=== PATIENT | male | born 1980 | race Two or more races ===

== ENCOUNTER 2023-01-26 10:19 | Observation (INO) | payer OTHER ==
[2023-01-26 10:22] VITALS: BMI 31.3
[2023-01-26] MEDS ORDERED: ACETAMINOPHEN 500 MG TABLET (FP) PO ONE (10:49)
[2023-01-26] MEDS ORDERED: KETOROLAC TROMETHAMINE 30 MG/1 ML VIAL IM ONE (10:49)
[2023-01-26] MEDS ORDERED: ACETAMINOPHEN 500 MG TABLET (FP) ONE (11:33)
[2023-01-26] MEDS ORDERED: KETOROLAC TROMETHAMINE 30 MG/1 ML VIAL ONE ×2 (11:33→21:20)
[2023-01-26 13:13] LABS: BASO % 0.4 % (0-2.0); EOS % 0.9 % (0-4.5); HEMOGLOBIN 9.6 GM/dL (11.7-16.9); LYMPH % 18.6 % (8-40); MCH 28.6 pg (25.7-33.7); MEAN CELL VOLUME 92.4 fl (80-96); MEAN PLT VOLUME 8.2 fl (7.5-11.1); MONO % 8.5 % (3.8-10.2); NEUT % 71.6 % (42.8-82.8); PLATELET COUNT 193 10^3/uL (134-434); RBC 3.35 M/mm3 (4.00-5.60); RDW 20.4 % (11.9-15.9); WHITE BLOOD COUNT 6.3 K/mm3 (4.0-10.0)
[2023-01-26 13:39] LABS: POTASSIUM 5.1 mmol/L (3.5-5.1)
[2023-01-26 13:41] LABS: BLOOD UREA NITROGEN 3.4 mg/dL (7-18)
[2023-01-26 13:42] LABS: ALBUMIN 3.3 g/dl (3.4-5.0)
[2023-01-26 13:44] LABS: CREATININE 0.6 mg/dL (0.55-1.3)
[2023-01-26 13:46] LABS: BILIRUBIN,TOTAL 0.4 mg/dL (0.2-1); TOT PROT 7.9 g/dl (6.4-8.2)
[2023-01-26] MEDS ORDERED: ACETAMINOPHEN 500 MG TABLET (FP) PO PRN (20:53)
[2023-01-26] MEDS: KETOROLAC TROMETHAMINE 30 MG/1 ML VIAL IVPUSH PRN (21:25)
[2023-01-27] MEDS ORDERED: ONDANSETRON 4 MG/2 ML VIAL IVPUSH ONE (01:00)
[2023-01-27] MEDS ORDERED: KETOROLAC TROMETHAMINE 30 MG/1 ML VIAL ONE (06:22)
[2023-01-27] MEDS: KETOROLAC TROMETHAMINE 30 MG/1 ML VIAL IVPUSH PRN ×3 (06:23→23:38)
[2023-01-27 12:35] LABS: BASO % 0.4 % (0-2.0); EOS % 0.4 % (0-4.5); HEMATOCRIT 29.1 % (35.4-49); HEMOGLOBIN 8.8 GM/dL (11.7-16.9); LYMPH % 14.9 % (8-40); MCH 27.8 pg (25.7-33.7); MCHC 30.3 g/dl (32.0-35.9); MEAN CELL VOLUME 91.7 fl (80-96); MEAN PLT VOLUME 7.9 fl (7.5-11.1); MONO % 13.9 % (3.8-10.2); NEUT % 70.4 % (42.8-82.8); PLATELET COUNT 178 10^3/uL (134-434); RBC 3.17 M/mm3 (4.00-5.60); RDW 20.6 % (11.9-15.9); WHITE BLOOD COUNT 4.4 K/mm3 (4.0-10.0)
[2023-01-27 13:01] LABS: POTASSIUM 3.6 mmol/L (3.5-5.1)
[2023-01-27 13:03] LABS: CALCIUM 8.1 mg/dL (8.5-10.1)
[2023-01-27 13:04] LABS: BLOOD UREA NITROGEN 8.7 mg/dL (7-18)
[2023-01-27 13:07] LABS: CREATININE 0.7 mg/dL (0.55-1.3)
[2023-01-27 13:08] LABS: TOT PROT 6.9 g/dl (6.4-8.2)
[2023-01-28 04:48] VITALS: RESP 18
[2023-01-28] MEDS: KETOROLAC TROMETHAMINE 30 MG/1 ML VIAL IVPUSH PRN (07:07)
[2023-01-28 09:21] VITALS: BP 131/77; PULSE 84; TEMP 100.1
== END 2023-01-28 09:25 | disposition home or self-care (01) ==
LOC: JER 10:19 → JERBED 15:31 → UNDOADMOB 15:31 → INTOOBSV 15:31 → JERBED 01-27 09:06 → J6S 01-27 10:48
PROVIDERS: ADMIT Family Medicine; ATTEND Family Medicine
PROC: 3E0233Z Introduction of Anti-inflammatory into Muscle, Percutaneous Approach (ICD-10-PCS; principal; 2023-01-27)
PROC: 3E0337Z Introduction of Electrolytic and Water Balance Substance into Peripheral Vein, Percutaneous Approach (ICD-10-PCS; 2023-01-27)
DX: R19.00 Intra-abdominal and pelvic swelling, mass and lump, unspecified site (principal); F17.200 Nicotine dependence, unspecified, uncomplicated; M25.551 Pain in right hip; Z91.013 Allergy to seafood
CPT/HCPCS: 36415; 72192-TC; 73502-TC-RT-FY; 80053; 82728; 83540; 83550; 85025; 85045; 86850; 86900; 86901; 96361; 96372; 96374; 99285-25; G0378

== ENCOUNTER 2024-04-07 22:47 | Observation (INO) | payer OTHER ==
[2024-04-08] MEDS: ACETAMINOPHEN 325 MG TABLET (FP) PO ONE (03:40)
[2024-04-08] MEDS: KETOROLAC TROMETHAMINE 30 MG/1 ML VIAL IM ONE (04:42)
[2024-04-08] MEDS ORDERED: KETOROLAC TROMETHAMINE 30 MG/1 ML VIAL ONE (04:43)
[2024-04-08] MEDS ORDERED: morphine SULFATE 4 MG/ML VIAL ONE (07:20)
[2024-04-08] MEDS: morphine CARPU-JECT 2 MG/1 ML DISP.SYRIN IM ONE (07:28)
[2024-04-08] MEDS: HYDROmorphone HCl 2 MG/ML VIAL IVPUSH ONE (09:15)
[2024-04-08] MEDS ORDERED: HYDROmorphone HCl 2 MG/ML VIAL ONE (09:31)
[2024-04-08 10:08] LABS: INR 1.06 (0.83-1.09)
[2024-04-08 10:10] LABS: ACTIVATED PTT 30.9 SECONDS (25.2-36.5)
[2024-04-08 10:12] LABS: BASO % 0.4 % (0-2.0); EOS % 0.3 % (0-4.5); HEMATOCRIT 39.7 % (35.4-49); HEMOGLOBIN 13.1 GM/dL (11.7-16.9); LYMPH % 15.8 % (8-40); MCH 32.5 pg (25.7-33.7); MCHC 32.9 g/dl (32.0-35.9); MEAN CELL VOLUME 98.7 fl (80-96); MEAN PLT VOLUME 8.4 fl (7.5-11.1); MONO % 8.1 % (3.8-10.2); NEUT % 75.4 % (42.8-82.8); PLATELET COUNT 153 10^3/uL (134-434); RBC 4.03 M/mm3 (4.00-5.60); RDW 13.5 % (11.9-15.9); WHITE BLOOD COUNT 6.2 K/mm3 (4.0-10.0)
[2024-04-08 10:21] LABS: CHLORIDE 104 mmol/L (98-107); POTASSIUM 3.5 mmol/L (3.5-5.1); SODIUM 140 mmol/L (136-145)
[2024-04-08 10:24] LABS: ALBUMIN 3.3 g/dl (3.4-5.0)
[2024-04-08 10:25] LABS: ANION GAP 9 mmol/L (4-13); CALCIUM 8.7 mg/dL (8.5-10.1); CO2 27 mmol/L (21-32); GLUCOSE,RANDOM 97 mg/dL (74-106)
[2024-04-08 10:29] LABS: CREATININE 0.8 mg/dL (0.55-1.3); SGOT/AST 254 U/L (15-37); SGPT/ALT 121 U/L (13-61)
[2024-04-08 10:30] LABS: BILIRUBIN,TOTAL 1.6 mg/dL (0.2-1)
[2024-04-08 10:31] LABS: ALK PHOS 176 U/L (45-117); TOT PROT 7.4 g/dl (6.4-8.2)
[2024-04-08 10:36] LABS: BLOOD UREA NITROGEN 2.9 mg/dL (7-18)
[2024-04-08] MEDS ORDERED: ONDANSETRON 4 MG/2 ML VIAL ONE (11:02)
[2024-04-08] MEDS: ONDANSETRON 4 MG/2 ML VIAL IVPUSH ONE (11:08)
[2024-04-08 12:38] VITALS: BMI 31.7
[2024-04-08 13:39] VITALS: RESP 18
[2024-04-08] MEDS: HYDROmorphone HCl 2 MG/ML VIAL IVPUSH PRN (17:38)
[2024-04-08 20:31] LABS: ALBUMIN 3.3 g/dl (3.4-5.0)
[2024-04-08 20:34] LABS: BILIRUBIN,DIRECT 0.9 mg/dL (0.0-0.2)
[2024-04-08 20:36] LABS: BILIRUBIN,TOTAL 2.2 mg/dL (0.2-1)
[2024-04-08 20:37] LABS: TOT PROT 7.4 g/dl (6.4-8.2)
[2024-04-08] MEDS: HEPARIN NA (PORCINE) 5,000 UNITS/ML 1ML VIAL SQ SCH (21:15)
[2024-04-09 09:12] LABS: POTASSIUM 3.3 mmol/L (3.5-5.1)
[2024-04-09 09:19] LABS: ALBUMIN 3.3 g/dl (3.4-5.0); BLOOD UREA NITROGEN 6.8 mg/dL (7-18); CALCIUM 9.2 mg/dL (8.5-10.1)
[2024-04-09 09:22] LABS: CREATININE 0.9 mg/dL (0.55-1.3)
[2024-04-09 09:24] LABS: BILIRUBIN,TOTAL 2.3 mg/dL (0.2-1); TOT PROT 7.8 g/dl (6.4-8.2)
[2024-04-09 09:39] LABS: LDL CHOLESTEROL (ONLY SJRH) 68 mg/dL (5-100)
[2024-04-09 09:41] LABS: HDL CHOLESTEROL 76 mg/dL (40-60)
[2024-04-09] MEDS ORDERED: ONDANSETRON *ODT* 4 MG TABLET SL PRN (10:06)
[2024-04-09 10:59] LABS: CHOLESTEROL 154 mg/dL (50-200)
[2024-04-09 11:00] LABS: HEMATOCRIT 39.6 % (35.4-49); HEMOGLOBIN 13.1 GM/dL (11.7-16.9); LYMPH % 12.4 % (8-40); MCH 33.1 pg (25.7-33.7); MCHC 33.1 g/dl (32.0-35.9); MEAN CELL VOLUME 99.9 fl (80-96); MEAN PLT VOLUME 8.9 fl (7.5-11.1); MONO % 9.2 % (3.8-10.2); NEUT % 78.4 % (42.8-82.8); PLATELET COUNT 142 10^3/uL (134-434); RBC 3.97 M/mm3 (4.00-5.60); RDW 13.7 % (11.9-15.9); WHITE BLOOD COUNT 6.2 K/mm3 (4.0-10.0)
[2024-04-09] MEDS ORDERED: DOCUSATE SODIUM 100 MG CAPSULE (FP) PO PRN (15:45)
[2024-04-09] MEDS: oxyCODONE HCL 5 MG TABLET PO PRN (16:36)
[2024-04-09 17:46] LABS: COCAINE, UR NEGATIVE (NEGATIVE); METHADONE, UR NEGATIVE (NEGATIVE); URINE AMPHETAMINES NEGATIVE (NEGATIVE); URINE BARBITURATES NEGATIVE (NEGATIVE); URINE BENZODIAZEPINES NEGATIVE (NEGATIVE)
[2024-04-09 17:47] LABS: PHENCYCLIDINE,URINE NEGATIVE (NEGATIVE)
[2024-04-09 17:53] LABS: OPIATES, URI POSITIVE (NEGATIVE)
[2024-04-09] MEDS: POTASSIUM CHLORIDE ORAL LIQUID 20 MEQ/15 ML PO ONE (17:55)
[2024-04-09] MEDS: LORazepam 2 MG/ML SDV VIAL IVPUSH ONE (17:59)
[2024-04-09] MEDS: KETOROLAC TROMETHAMINE 30 MG/1 ML VIAL IVPUSH PRN (20:36)
[2024-04-09] MEDS: ONDANSETRON 4 MG/2 ML VIAL IVPUSH PRN (21:37)
[2024-04-10 04:08] VITALS: BP 120/74; PULSE 78; TEMP 99.3
[2024-04-10] MEDS: chlordiazePOXIDE HCL 25 MG CAPSULE PO SCH (07:00)
[2024-04-10 09:04] LABS: HEMATOCRIT 38.6 % (35.4-49); HEMOGLOBIN 12.8 GM/dL (11.7-16.9); MCH 32.8 pg (25.7-33.7); MCHC 33.3 g/dl (32.0-35.9); MEAN CELL VOLUME 98.3 fl (80-96); MEAN PLT VOLUME 8.4 fl (7.5-11.1); PLATELET COUNT 127 10^3/uL (134-434); RBC 3.92 M/mm3 (4.00-5.60); RDW 13.5 % (11.9-15.9); WHITE BLOOD COUNT 5.2 K/mm3 (4.0-10.0)
[2024-04-10] MEDS: FOLIC ACID 1 MG TABLET (FP) PO SCH (09:14)
[2024-04-10] MEDS: THIAMINE 100 MG TABLET PO SCH (09:16)
[2024-04-10 09:41] LABS: CALCIUM 9.1 mg/dL (8.5-10.1)
[2024-04-10 09:42] LABS: BLOOD UREA NITROGEN 9.6 mg/dL (7-18); MAGNESIUM 1.9 mg/dL (1.8-2.4)
[2024-04-10 09:45] LABS: CREATININE 0.8 mg/dL (0.55-1.3)
[2024-04-10 09:46] LABS: TOT PROT 7.2 g/dl (6.4-8.2)
[2024-04-10 09:48] LABS: BILIRUBIN,TOTAL 1.8 mg/dL (0.2-1)
== END 2024-04-10 09:55 | disposition left against medical advice (07) ==
LOC: JER 22:47 → INTOOBSV 04-08 09:00 → JERBED 04-08 09:00 → J6S 04-08 12:14
PROVIDERS: ADMIT Family Medicine; ATTEND Family Medicine
PROC: 3E023GC Introduction of Other Therapeutic Substance into Muscle, Percutaneous Approach (ICD-10-PCS; principal; 2024-04-08)
PROC: 3E033NZ Introduction of Analgesics, Hypnotics, Sedatives into Peripheral Vein, Percutaneous Approach (ICD-10-PCS; 2024-04-08)
PROC: 3E0233Z Introduction of Anti-inflammatory into Muscle, Percutaneous Approach (ICD-10-PCS; 2024-04-08)
PROC: 3E0333Z Introduction of Anti-inflammatory into Peripheral Vein, Percutaneous Approach (ICD-10-PCS; 2024-04-08)
PROC: 3E033GC Introduction of Other Therapeutic Substance into Peripheral Vein, Percutaneous Approach (ICD-10-PCS; 2024-04-08)
DX: K70.10 Alcoholic hepatitis without ascites (principal); F10.99 Alcohol use, unspecified with unspecified alcohol-induced disorder; R94.5 Abnormal results of liver function studies; K76.0 Fatty (change of) liver, not elsewhere classified; R16.0 Hepatomegaly, not elsewhere classified; Z90.49 Acquired absence of other specified parts of digestive tract; W18.39XA Other fall on same level, initial encounter; Y93.89 Activity, other specified; Y92.89 Other specified places as the place of occurrence of the external cause; Z91.013 Allergy to seafood; F17.210 Nicotine dependence, cigarettes, uncomplicated
CPT/HCPCS: 36415; 73562-TC-RT-FY; 73700-TC-RT; 74182-TC; 76705-TC; 80053; 80061; 80076; 80307; 82390; 82553; 82728; 83540; 83690; 83735; 84443; 85025; 85027; 85610; 85730; 86038; 86705; 86709; 86803; 86850; 86900; 86901; 87340; 87902; 93005; 93010; 96372; 96374; 96375; 96376; 97116-GP; 97162-GP; 99285-25; G0378; J1644

== ENCOUNTER 2024-08-28 23:49 | Emergency (ER) | payer OTHER ==
[2024-08-28 23:54] VITALS: BP 128/81; PULSE 112; RESP 18; TEMP 97.8; BMI 32.1
[2024-08-29] MEDS ORDERED: TRANEXAMIC ACID 1000 MG/10 ML VIAL ONE (00:35)
[2024-08-29] MEDS: OXYMETAZOLINE 0.05% NASAL SOLUTION 15 ML BOTTLE NS ONE (00:37)
[2024-08-29] MEDS: TRANEXAMIC ACID 1000 MG/10 ML VIAL IVPUSH ONE (00:37)
[2024-08-29 01:12] LABS: HEMATOCRIT 38.2 % (40.1-51.0); HEMOGLOBIN 12.3 g/dL (13.7-17.5); MCHC 32.2 g/dl (32.3-36.5); MEAN CELL VOLUME 91.2 fl (79.0-92.2); MEAN PLT VOLUME 9.9 fl (9.4-12.4); PLATELET COUNT 160 x10^3/uL (163-337); RDW 15.9 % (12.1-15.9)
[2024-08-29 01:27] LABS: INR 1.19 (0.83-1.09)
[2024-08-29 01:52] LABS: POTASSIUM 3.1 mmol/L (3.5-5.1)
[2024-08-29 01:54] LABS: CALCIUM 9.3 mg/dL (8.5-10.1)
[2024-08-29 01:55] LABS: ALBUMIN 3.9 g/dl (3.4-5.0); BLOOD UREA NITROGEN 9.7 mg/dL (7-18)
[2024-08-29 01:58] LABS: CREATININE 0.9 mg/dL (0.55-1.3)
[2024-08-29 01:59] LABS: BILIRUBIN,TOTAL 1.8 mg/dL (0.2-1); TOT PROT 8.3 g/dl (6.4-8.2)
== END 2024-08-29 01:59 | disposition left against medical advice (07) ==
LOC: JER 23:49
PROC: 3E033GC Introduction of Other Therapeutic Substance into Peripheral Vein, Percutaneous Approach (ICD-10-PCS; principal; 2024-08-29)
DX: R04.0 Epistaxis (principal)
CPT/HCPCS: 36415; 80053; 85027; 85610; 99284-25

== ENCOUNTER 2024-08-30 16:31 | Emergency (ER) | payer OTHER ==
[2024-08-30 16:42] VITALS: BMI 31.1
[2024-08-30] MEDS ORDERED: TRANEXAMIC ACID 1000 MG/10 ML VIAL ONE ×2 (17:50→20:12)
[2024-08-30 18:32] LABS: ABSOLUTE IMMATURE GRANULOCYTES 0.01 x10^3/uL (0.0-0.031); BASOPHILS # 0.03 x10^3/uL (0.01-0.08); EOSINOPHIL % 0.9 % (0.8-7.0); EOSINOPHILS # 0.05 x10^3/uL (0.04-0.54); HEMATOCRIT 33.3 % (40.1-51.0); HEMOGLOBIN 10.7 g/dL (13.7-17.5); MCHC 32.1 g/dl (32.3-36.5); MEAN CELL VOLUME 92.8 fl (79.0-92.2); MEAN PLT VOLUME 10.1 fl (9.4-12.4); MONOCYTE # 0.56 x10^3/uL (0.30-0.82); MONOCYTE % 10.4 % (5.3-12.2); PLATELET COUNT 152 x10^3/uL (163-337); RDW 15.9 % (12.1-15.9)
[2024-08-30] MEDS: TRANEXAMIC ACID 1000 MG/10 ML VIAL IVPUSH ONE ×3 (18:34→20:40)
[2024-08-30 18:39] LABS: INR 1.06 (0.83-1.09); PROTHROMBIN TIME (PATIENT) 11.6 SEC (9.7-13.0)
[2024-08-30 18:42] LABS: ACTIVATED PTT 27.4 SECONDS (25.2-36.5)
[2024-08-30 18:52] LABS: POTASSIUM 3.3 mmol/L (3.5-5.1)
[2024-08-30 18:54] LABS: CALCIUM 9.1 mg/dL (8.5-10.1)
[2024-08-30 18:55] LABS: ALBUMIN 3.6 g/dl (3.4-5.0); BLOOD UREA NITROGEN 6.2 mg/dL (7-18)
[2024-08-30 18:58] LABS: CREATININE 0.8 mg/dL (0.55-1.3)
[2024-08-30 18:59] LABS: BILIRUBIN,TOTAL 1.4 mg/dL (0.2-1); TOT PROT 7.8 g/dl (6.4-8.2)
[2024-08-30] MEDS ORDERED: MAGNESIUM 1GM/D5W - 1 GM/100 ML IVPB IVPB ONE (19:43)
[2024-08-30] MEDS ORDERED: POTASSIUM CHLORIDE ORAL LIQUID 20 MEQ/15 ML ONE (19:45)
[2024-08-30] MEDS: MAGNESIUM 1GM/D5W - 1 GM/100 ML IVPB IVPB ONE (20:08)
[2024-08-30] MEDS: POTASSIUM CHLORIDE ORAL LIQUID 20 MEQ/15 ML PO ONE (20:08)
[2024-08-30 20:58] VITALS: BP 137/84; PULSE 109; RESP 18; TEMP 98.7
== END 2024-08-30 21:08 | disposition home or self-care (01) ==
LOC: JER 16:31
PROC: 093K7ZZ Control Bleeding in Nasal Mucosa and Soft Tissue, Via Natural or Artificial Opening (ICD-10-PCS; principal; 2024-08-30)
PROC: 3E033GC Introduction of Other Therapeutic Substance into Peripheral Vein, Percutaneous Approach (ICD-10-PCS; 2024-08-30)
PROC: 3E033GC Introduction of Other Therapeutic Substance into Peripheral Vein, Percutaneous Approach (ICD-10-PCS; 2024-08-30)
PROC: 3E033GC Introduction of Other Therapeutic Substance into Peripheral Vein, Percutaneous Approach (ICD-10-PCS; 2024-08-30)
DX: R04.0 Epistaxis (principal); R74.01 Elevation of levels of liver transaminase levels; R42 Dizziness and giddiness; R06.02 Shortness of breath; R19.5 Other fecal abnormalities
CPT/HCPCS: 36415; 80053; 85025; 85610; 85730; 86850; 86900; 86901; 99284-25